=== PATIENT | male | born 1940 | race Caucasian/White ===

== ENCOUNTER → 2019-07-03 09:06 | Outpatient (CLI) | payer OTHER, SELFPAY ==
--- NOTE | 2019-07-03 09:21 | CA_ITS ---
APPROVED REPORT EXAM: Comprehensive 2D, Doppler, and color-flow Echocardiogram [facility] Rn: Sangita Hdez RVT Ht: 5 ft 9 in Wt: 228lbs BSA: 2.18 BP: 125/78 mmHg Indications: COPD, Shortness of Breath, CAD, Hypertension,CABG,HLD 2D Dimensions LVOT 2.36 cm (M/F) 1.5-2.5 M-Mode Dimensions RVDd 2.97 cm (0.9-2.6) LA Diam 3.45 cm (1.9-4.0) LVDd 5.34 cm (3.5-5.7) Ao Diam 3.30 cm (2.0-3.7) LVDs 4.04 cm (3.5-5.7) AV Cusp 1.60 cm (1.5-2.6) IVSd 1.10 cm (0.6-1.1) PWd 0.74 cm (0.6-1.1) EF (Teich) 47.90% FS 24.30% EDV (Teich) 137.70 mL ESV (Teich) 71.70 mL LV Diastology E/A Ratio 1.59 Mitral Valve MV A Velocity 43.00 (40-130 cm/s) Left Ventricle Left atrium is mildly enlarged, left ventricle is normal size, mild concentric left ventricular hypertrophy, visually estimated ejection fraction 55% with no regional wall motion abnormality. Diastolic parameters are inconclusive. Right Ventricle Right atrium and right ventricle are mildly enlarged with normal contractility. Aortic Valve Aortic valve is minimally thickened and fibrosed, there is no aortic stenosis, there is mild aortic insufficiency. Mitral Valve Mitral valve is grossly normal, there is mild mitral regurgitation. Tricuspid Valve Tricuspid valve is grossly normal, there is mild tricuspid regurgitation, calculated right ventricular systolic pressure is 39 mmHg. Pulmonic Valve Pulmonic valve is poorly visualized. Great Vessels Aortic root is normal size. Pericardium No significant pericardial effusion noted. Conclusion 1. Technically difficult study because of the patient factors and poor acoustic windows 2. Mild biatrial enlargement, normal left ventricular size, mild concentric left ventricular hypertrophy, visually estimated ejection fraction 55% with no regional wall motion abnormality. Diastolic parameters are inconclusive. 3. Mildly enlarged right ventricle with normal contractility. 4. Thickened and calcified aortic valve without aortic stenosis, there is mild aortic insufficiency. 5. Mild mitral and tricuspid regurgitation, calculated right ventricular systolic pressure is 39 mmHg. 6. No significant pericardial effusion noted. Electronically signed by : Bryce García, 07/04/2019 13:34:26
== END ==
PROVIDERS: Visit Provider Orthopaedic Surgery
DX: I25.10 Atherosclerotic heart disease of native coronary artery without angina pectoris (principal)
CPT/HCPCS: 93306